=== PATIENT | female | born 1990 | race American Indian/Alaskan Native ===

== ENCOUNTER 2017-10-11 10:01 | Emergency (ER) | payer MEDICAID ==
[2017-10-11 11:01] LABS: Basophils % (Auto) 0.3 % (0.0-1.8); Eosinophils % (Auto) 4.8 % (0.0-4.3); Hematocrit 40.9 % (30.3-42.9); Hemoglobin 13.3 gm/dl (10.1-14.3); Mean Corpuscular HGB Conc 33 % (30-34); Mean Corpuscular Volume 79 fl (79-97); Platelet Count 291 K/mm3 (140-440); Red Blood Count 5.21 M/mm3 (3.65-5.03); Red Cell Distribution Width 13.9 % (13.2-15.2); White Blood Count 7.9 K/mm3 (4.5-11.0)
[2017-10-11 11:02] LABS: Mean Corpuscular Hemoglobin 26 pg (28-32)
[2017-10-11 11:11] LABS: Anion Gap 18 mmol/L; BUN/Creatinine Ratio 11; Blood Urea Nitrogen 8 mg/dL (7-17); Calcium 9.3 mg/dL (8.4-10.2); Carbon Dioxide 23 mmol/L (22-30); Chloride 101.4 mmol/L (98-107); Glucose 122 mg/dL (65-100); Potassium 3.3 mmol/L (3.6-5.0); Sodium 139 mmol/L (137-145)
[2017-10-11] MEDS ORDERED: GEODON IM ONE (11:15)
[2017-10-11] MEDS ORDERED: ATIVAN IM ONE (11:15)
[2017-10-11] MEDS ORDERED: XYLOCAINE 1%/ EPI 1:100,000 INFILTRATI ONE (11:16)
[2017-10-11] MEDS ORDERED: BOOSTRIX IM ONE (11:18)
[2017-10-11] MEDS ORDERED: WATER FOR INJ (PF) 10 ML ONE (11:20)
[2017-10-11] MEDS ORDERED: XYLOCAINE 1% 20 mL INFILTRATI ONE ×2 (11:23→11:26)
[2017-10-11] MEDS ORDERED: NACL 0.9% 500 ML IR ONE (12:09)
[2017-10-11] MEDS ORDERED: KETALAR ONE (12:26)
[2017-10-11 12:44] LABS: HIV-1 Antigen p24 Non React (Non React); HIVR-1/2 Ab Non React (Non React)
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
[2017-10-11] MEDS ORDERED: KETALAR IM ONE (13:24)
[2017-10-11] MEDS ORDERED: GEODON IM PRN (15:48)
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
[2017-10-11] MEDS ORDERED: K-DUR PO ONE (16:01)
[2017-10-11] MEDS ORDERED: ANCEF IM ONE (16:08)
[2017-10-11] MEDS: KEFLEX PO SCH ×2 (16:25→23:56)
[2017-10-11] MEDS ORDERED: ATIVAN IM PRN (20:23)
[2017-10-11] MEDS: VISTARIL PO SCH (20:30)
[2017-10-11] MEDS: THORAZINE PO SCH (20:30)
[2017-10-11] MEDS: HALDOL IM PRN (20:38)
[2017-10-11] MEDS: BENADRYL PO SCH (23:56)
[2017-10-12] MEDS: COLACE PO SCH ×3 (01:49→22:44)
[2017-10-12] MEDS: KEFLEX PO SCH ×3 (08:30→20:55)
[2017-10-12] MEDS: BENADRYL PO SCH ×2 (08:30→17:00)
[2017-10-12] MEDS: VISTARIL PO SCH ×3 (10:50→21:00)
[2017-10-12] MEDS: THORAZINE PO SCH ×3 (10:50→21:00)
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
[2017-10-13] MEDS: THORAZINE PO SCH ×3 (08:43→19:53)
[2017-10-13] MEDS: KEFLEX PO SCH ×3 (08:43→19:52)
[2017-10-13] MEDS: VISTARIL PO SCH ×2 (08:49→17:30)
[2017-10-13] MEDS: COLACE PO SCH ×2 (11:27→21:53)
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
[2017-10-14] MEDS: THORAZINE PO SCH ×3 (09:05→20:29)
[2017-10-14] MEDS: KEFLEX PO SCH ×3 (09:05→20:30)
--- NOTE | 2017-10-14 10:23 | Progress Note ---
Subjective - Reason for Consult Consult date: 10/14/17 Reason for consult: Psychiatry Follow-up - Chief Complaint Chief complaint: "Can I leave" 27 year old AAF seen for psychiatric evaluation in the ER. She [facility] in a prison. Today patient is calm and cooperative during the assessment. She stated that she would like to return to her prison. She had to be redirected several time during the assessment to keep her on topic. She denies SI/HI's and AVH's. Mental Status Exam - Vital signs Last Vital Signs Temp 98.4 F 10/14/17 08:54 Pulse 108 H 10/14/17 08:54 Resp 16 10/14/17 08:54 BP 139/97 10/14/17 08:54 Pulse Ox 100 10/14/17 08:54 - Exam Narrative exam: MSE: Appearance: calm, cooperative Behavior: regular eye contact Speech: regular rate and tone Mood: "okay" Affect: labile Thought Process: circumstantial Thought Content: denies SI/HI's and AVH's Motor Activity: ambulatory Cognition: A/Ox3 Insight: limited Judgment: limited Assessment and Plan Impression: Record indicates a history of schizophrenia. Today patient is calm and cooperative during the assessment. DDx: R/O Schizoaffective DO Recommendation/Plan: Continue with 1013 and transfer to inpatient psychiatric facility for stabilization. Continue Thorazine 25 mg PO TID and Klonopin 1 mg PO BID for anxiety.
[2017-10-14] MEDS: COLACE PO SCH ×2 (10:26→22:05)
[2017-10-15] MEDS ORDERED: NACL 0.9% 1000 ML 1,000 ML ONE (04:37)
[2017-10-15] MEDS: KEFLEX PO SCH ×3 (08:03→20:23)
[2017-10-15] MEDS: THORAZINE PO SCH ×3 (08:03→20:24)
[2017-10-15] MEDS: COLACE PO SCH ×2 (10:12→22:24)
[2017-10-15 10:34] LABS: Urine Drugs of Abuse Note Disclamer
[2017-10-15 10:48] LABS: Bacteria,Urine 4+ /HPF (Negative); Bilirubin,Urine NEG (Negative); Blood,Urine NEG (Negative); Ketones,Urine NEG (Negative); Leukocyte Esterase,Urine SM (Negative); Mucus,Urine FEW /HPF; Nitrite,Urine NEG (Negative); Protein,Urine <15 mg/dL mg/dL (Negative); Urobilinogen,Urine < 2.0 mg/dL (<2.0)
[2017-10-15] MEDS ORDERED: NACL 0.9% IR ONE (11:44)
[2017-10-15] MEDS ORDERED: ALUM-MAG HYDROX-SIMETH 200-200-20MG/5ML PO PRN (12:03)
[2017-10-15] MEDS ORDERED: MILK OF MAGNESIA PO PRN (12:32)
--- NOTE | 2017-10-16 11:07 | Progress Note ---
Subjective - Reason for Consult Consult date: 10/16/17 Reason for consult: Psychiatry Follow-up - Chief Complaint Chief complaint: "I can return to my [facility]" 27 year old AAF seen for psychiatric evaluation in the ER. She resides in a [facility]. Today patient is calm and cooperative during the assessment. She stated that she would like to return to her [facility]. Patient had to be redirected during the interview to stay on topic. She denies SI/HI's and AVH's. Mental Status Exam - Vital signs Last Vital Signs Temp 98.6 F 10/15/17 22:00 Pulse 90 10/15/17 22:00 Resp 16 10/15/17 22:00 BP 112/86 10/15/17 22:00 Pulse Ox 98 10/15/17 22:00 - Exam Narrative exam: MSE: Appearance: calm, cooperative Behavior: regular eye contact Speech: regular rate and tone Mood: "okay" Affect: congruent to mood Thought Process: circumstantial Thought Content: denies SI/HI's and AVH's, disorganized Motor Activity: ambulatory Cognition: A/Ox3 Insight: limited Judgment: limited Assessment and Plan Impression: Record indicates a history of schizophrenia. Today patient is calm and cooperative during the assessment. DDx: R/O Schizoaffective DO Recommendation/Plan: Continue with 1013 and transfer to inpatient psychiatric facility for stabilization. Continue Thorazine 25 mg PO TID and Klonopin 1 mg PO BID for anxiety.
[2017-10-16] MEDS: KEFLEX PO SCH ×2 (11:29→14:54)
[2017-10-16] MEDS: THORAZINE PO SCH ×2 (11:29→14:54)
[2017-10-16] MEDS: COLACE PO SCH (11:30)
[2017-10-17] MEDS: COLACE PO SCH ×3 (01:00→22:10)
[2017-10-17] MEDS: KEFLEX PO SCH ×4 (01:00→20:28)
[2017-10-17] MEDS: THORAZINE PO SCH ×4 (01:45→20:28)
[2017-10-17] MEDS ORDERED: ATIVAN ONE (10:29)
[2017-10-17] MEDS ORDERED: BENADRYL ONE (10:30)
[2017-10-17] MEDS ORDERED: ATIVAN IM ONE (10:42)
[2017-10-17] MEDS ORDERED: BENADRYL IM ONE (10:44)
--- NOTE | 2017-10-17 11:01 | Progress Note ---
Subjective - Reason for Consult Consult date: 10/17/17 Reason for consult: Psychiatry Follow-up - Chief Complaint Chief complaint: "Good morning" 27 year old AAF seen for psychiatric evaluation in the ER. She resides in a half-way. Today patient is calm, but disorganized during the assessment. Patient had to be redirected during the interview to stay on topic. She denies SI/HI's and AVH's. Mental Status Exam - Vital signs Last Vital Signs Temp 97.6 F 10/16/17 19:35 Pulse 102 H 10/16/17 19:35 Resp 17 10/16/17 19:35 BP 117/84 10/16/17 19:35 Pulse Ox 99 10/16/17 19:35 - Exam Narrative exam: MSE: Appearance: calm Behavior: regular eye contact Speech: regular rate and tone Mood: "okay" Affect: congruent to mood Thought Process: circumstantial Thought Content: denies SI/HI's and AVH's, disorganized Motor Activity: ambulatory Cognition: A/Ox3 Insight: limited Judgment: limited Assessment and Plan Impression: Record indicates a history of schizophrenia. Today patient is calm during the assessment. DDx: R/O Schizoaffective DO Recommendation/Plan: Evaluate 1013 in 24 hours to determine proper dispo. Patient is pending at [facility]. Continue Thorazine 25 mg PO TID and Klonopin 1 mg PO BID for anxiety.
[2017-10-17] MEDS: HALDOL IM PRN (20:31)
[2017-10-18] MEDS: THORAZINE PO SCH ×3 (10:27→19:59)
[2017-10-18] MEDS: COLACE PO SCH ×2 (10:27→22:03)
[2017-10-18] MEDS: KEFLEX PO SCH ×3 (10:27→19:59)
[2017-10-18] MEDS: HALDOL IM PRN ×2 (15:00→19:30)
[2017-10-18] MEDS: TYLENOL PO PRN (22:05)
[2017-10-19] MEDS: HALDOL IM PRN ×3 (01:07→20:17)
[2017-10-19] MEDS: KEFLEX PO SCH ×3 (09:50→21:51)
[2017-10-19] MEDS: THORAZINE PO SCH ×4 (09:51→22:43)
[2017-10-19] MEDS: COLACE PO SCH ×2 (11:41→22:41)
[2017-10-19] MEDS ORDERED: ATIVAN PO ONE (14:13)
[2017-10-19] MEDS ORDERED: ATIVAN ONE (14:15)
[2017-10-19] MEDS ORDERED: NACL 0.9% 1000 ML 1,000 ML IV ONE (15:12)
[2017-10-19] MEDS ORDERED: K-DUR PO ONE (15:13)
--- NOTE | 2017-10-19 19:04 | Cat Scan Report ---
FINAL REPORT EXAM: CT ANGIO CHEST HISTORY: elevated dimer, tachycardia TECHNIQUE: CT chest CT angiogram with reconstructions PRIORS: None. FINDINGS: There is no evidence of filling defect within the central pulmonary vasculature to suggest the presence of acute pulmonary embolus. No evidence of mediastinal pathologic lymph node enlargement Heart and great vessels are unremarkable. The aorta is normal in caliber. No focal pulmonary infiltrate identified. No pleural fluid collection seen. No acute pulmonary abnormality noted. Visualized portion of the upper abdomen demonstrates no acute change. IMPRESSION: Negative. No CT evidence of acute pulmonary embolus
[2017-10-19] MEDS ORDERED: ATIVAN IV ONE ×3 (19:18→20:00)
--- NOTE | 2017-10-19 19:18 | Emergency Department Report ---
Blank Doc - Documentation Documentation: Psychiatry is requests the EKG prior to patient accepted for psychiatric facility. EKG was obtained at 1:53 PM and shows sinus tachycardia at rate 116. Patient is currently psychotic and agitated. 1 L normal saline and by mouth Ativan provided and patient still had a low-grade tachycardia. D-dimer was added to labs and was elevated there for CT angiogram was performed and is negative. Patient had thyroid function tests and also in negative range. Patient's heart rate decrease dasdown into the 90s when she is calm and relaxed. By mouth potassium and also provided for mild hypokalemia on initial blood draw.
--- NOTE | 2017-10-19 20:00 | Progress Note ---
Subjective - Reason for Consult Reason for consult: psych eval - Chief Complaint Chief complaint: 27 year old AAF seen for psychiatric evaluation in the ER. Patient remains disorganized. she does however remain calm in the hallway. She is responding and noting that she isn't hearing or seeing hallucination. No SI/HI. Denies any depression. Mental Status Exam - Vital signs Last Vital Signs Temp 98.7 F 10/19/17 08:28 Pulse 112 H 10/19/17 18:27 Resp 20 10/19/17 10:05 BP 131/74 10/19/17 08:28 Pulse Ox 97 10/19/17 10:05 - Exam Orientation: place, person Affect: normal, other Mood: other (fine) Thought content: delusions Thought Process: Disorganized Perceptions: hallucinations Speech: normal rate and pattern Concentration: distractible Motor activity: normal Level of consciousness: alert Memory: Intact Interaction: cooperative Mini mental status exam(if necessary): 24-30 Assessment and Plan Assessment and Plan Impression: patient continues to display psychosis with responding to internal stimuli and disorganization. 1. scpt- continue treatment but increase thorazine to 50mg bid to further address the psychosis. Obtain psych placement.
[2017-10-19] MEDS: TYLENOL PO PRN (21:51)
[2017-10-20] MEDS: KEFLEX PO SCH ×3 (09:41→23:10)
[2017-10-20] MEDS: COLACE PO SCH ×2 (11:32→23:10)
[2017-10-20] MEDS: THORAZINE PO SCH ×2 (11:34→23:18)
--- NOTE | 2017-10-20 12:11 | Progress Note ---
Subjective - Reason for Consult Consult date: 10/20/17 Reason for consult: Psychiatry Follow-up - Chief Complaint Chief complaint: "Olga" 27 year old AAF seen for psychiatric evaluation in the ER. Today patient is calm during the assessment. The patient is still disorganized with her thoughts and possibly responding to internal stimuli. She denies SI/HI's and AVH's. Mental Status Exam - Vital signs Last Vital Signs Temp 99.2 F 10/19/17 19:17 Pulse 103 H 10/20/17 02:35 Resp 18 10/20/17 03:02 BP 103/65 10/20/17 02:35 Pulse Ox 96 10/20/17 02:35 - Exam Narrative exam: MSE: Appearance: calm Behavior: regular eye contact Speech: regular rate and tone Mood: "okay" Affect: congruent to mood Thought Process: circumstantial Thought Content: denies SI/HI's and AVH's, disorganized Motor Activity: ambulatory Cognition: A/Ox3 Insight: limited Judgment: limited Assessment and Plan Impression: Record indicates a history of schizophrenia. Today patient is calm during the assessment. DDx: R/O Schizoaffective DO Recommendation/Plan: Continue 1013 with pending placement to [facility]. Continue Thorazine 50 mg PO TID and Klonopin 1 mg PO BID for anxiety.
--- NOTE | 2017-10-21 09:33 | Progress Note ---
Subjective - Reason for Consult Consult date: 10/21/17 Reason for consult: Psychiatry Follow-up - Chief Complaint Chief complaint: "Hello" 27 year old AAF seen for psychiatric evaluation in the ER. Today patient is calm during the assessment. The patient is still disorganized. She denies SI/HI' s and AVH's. Mental Status Exam - Vital signs Last Vital Signs Temp 98.1 F 10/20/17 08:48 Pulse 111 H 10/20/17 08:48 Resp 20 10/20/17 18:53 BP 112/79 10/20/17 08:48 Pulse Ox 100 10/20/17 18:53 - Exam Narrative exam: MSE: Appearance: calm Behavior: regular eye contact Speech: regular rate and tone Mood: "okay" Affect: congruent to mood Thought Process: circumstantial Thought Content: denies SI/HI's and AVH's, disorganized Motor Activity: ambulatory Cognition: A/Ox3 Insight: limited Judgment: limited Assessment and Plan Impression: Record indicates a history of schizophrenia. Today patient is calm during the assessment. DDx: R/O Schizoaffective DO Recommendation/Plan: Continue 1013 with placement to [facility] pending transport time. Continue Thorazine 50 mg PO TID and Klonopin 1 mg PO BID for anxiety.
[2017-10-21] MEDS: KEFLEX PO SCH ×2 (10:00→16:33)
[2017-10-21] MEDS: COLACE PO SCH (12:40)
[2017-10-21] MEDS: THORAZINE PO SCH (12:40)
[2017-10-21] MEDS: HALDOL IM PRN (15:30)
[2017-10-21] MEDS: TYLENOL PO PRN (16:34)
[2017-10-21 17:52] VITALS: BP 137/91
== END 2017-10-21 20:13 ==
LOC: ED 10:01 → EEVIPCON 10:01 → ED 10-21 20:13
DX: S51.812A Laceration without foreign body of left forearm, initial encounter (principal); F20.9 Schizophrenia, unspecified; F23 Brief psychotic disorder; W45.8XXA Other foreign body or object entering through skin, initial encounter; Y93.89 Activity, other specified; Y92.89 Other specified places as the place of occurrence of the external cause; Y99.8 Other external cause status
CPT/HCPCS: 12035; 36415; 73090; 80048; 80178; 80307; 81001; 84439; 84443; 84703; 85025; 85379; 87806; 90471; 90715; 93005; 96361; 96372; 96374; 99285; G0480; J0690; J1200; J1630; J2060; J3486; J7030; 80320; Q0161; Q0177